=== PATIENT | female | born 1990 | race Caucasian/White ===

== ENCOUNTER 2017-08-17 03:22 | Emergency (ER) | payer SELFPAY ==
[~2017-08-17] VITALS: Ht 167.6 cm; Wt 57.8 kg
[~2017-08-17 03:22] MED LIST: CLINDAMYCIN HC300 MG PO; LEVAQUIN750 MG PO; NAPROSYN500 MG PO; NAPROXEN500 MG PO; NORVIR100 M1; PERCOCET 5/31 TABLET PO; PREZISTA75 MG; TRUVADA1 TABLET; TYLENOL WITH C1 EACH PO; ULTRAM50 MG PO
[2017-08-17 06:03] VITALS: BP 100/60
[2017-08-17 23:03] LABS: RED BLOOD COUNT ND M/uL (3.80-5.20); WHITE BLOOD COUNT ND K/uL (4.1-10.2)
[2017-08-17 23:04] LABS: HEMATOCRIT ND % (36.0-46.0); MCH ND PG (29.0-34.0); MCHC ND G/DL (30.0-36.0); MCV ND FL (83-99); RBC DIS.WIDTH-CV ND % (11.8-14.6); RBC DIS.WIDTH-SD ND % (39-53)
[2017-08-17 23:05] LABS: HEM NON-PRINT COM 1 ND; HEMATOLOGY COMMENT 1 ND; IMM.PLATELET FRACTION ND (1-7); MEAN PLAT.VOLUME ND uM^3 (9.5-12.4); NRBC (%) ND /100 WBC (0-0); PLAT.SUFFICIENCY ND; PLATELET CLUMPS ND; PLATELET COUNT ND K/uL (156-360)
[2017-08-17 23:06] LABS: ANION GAP ND MEQ/L (2-14); CARBON DIOXIDE (BICARBONATE) ND mEq/L (20-31); CHLORIDE ND mEq/L (99-109); COMMENT (LAB VIEW ONLY) ND; GFR ESTIMATE (CALCULATED) ND mL/min/; GLUCOSE ND mg/dL (70-99); POTASSIUM ND mEq/L (3.7-5.4); SAMPLE HEMOLYSIS CHECK ND; SAMPLE ICTERIC CHECK ND; SAMPLE LIPEMIA CHECK ND; SODIUM ND mEq/L (136-147); UREA NITROGEN (BUN) ND mg/dL (9-23)
[2017-08-17 23:07] LABS: QUANTITATIVE HCG ND MIU/ML; SERUM ETHYL ALCOHOL ND mg/dL
== END 2017-08-17 06:13 | disposition home or self-care (01) ==
LOC: EME 03:22
PROVIDERS: Emergency Medicine
DX: F10.129 Alcohol abuse with intoxication, unspecified (principal); Z72.0 Tobacco use
CPT/HCPCS: 80048; 81003; 84702; 85027; G0480